=== PATIENT | female | born 1940 | race Caucasian/White ===

== ENCOUNTER 2017-11-13 10:10 | Emergency (ER) | payer MEDICARE ==
[~2017-11-13] VITALS: Ht 167.6 cm; Wt 68.7 kg
[2017-11-13 10:12] VITALS: BP 129/80; PULSE 76; RESP 18; TEMP 97.9; O2SAT 96
[2017-11-13] MEDS ORDERED: ALPR.5 PO (10:24)
[2017-11-13] MEDS ORDERED: FLUO20CA12 PO (10:24)
[2017-11-13] MEDS ORDERED: PROT40TA PO (10:24)
[2017-11-13] MEDS ORDERED: VITA10002 PO (10:24)
[2017-11-13] MEDS ORDERED: CHOL5000 PO (10:24)
--- NOTE | 2017-11-13 11:01 | PD ---
HPI Chief Complaint: Musculoskeletal Complaint Time Seen by Provider: 10:46 Travel History International Travel<30 days: No Contact w/Intl Traveler<30days: No Traveled to known affect area: No History of Present Illness HPI This is a 77-year-old female with right great toe pain after she stubbed the toe 2 days ago. [place] she noticed the area was bruised which prompted her visit. She reports mild to moderate pain in the toe worse with weightbearing and range of motion. Slightly relieved with rest. No other injuries. No altered sensation or weakness of the extremities. PFSH Past Medical History Medical History: Denies Significant Hx ?: Not Social History Tobacco Use: No Allergies-Medications (Allergen,Severity, Reaction): Coded Allergies: No Known Allergies (Unverified , 11/13/17) Reported Meds & Prescriptions Reported Meds & Active Scripts Active Reported Xanax (Alprazolam) 0.5 Mg Tab 0.5 Mg PO Q4H PRN Protonix (Pantoprazole Sodium) 40 Mg Tab 40 Mg PO DAILY Vitamin B-12 (Cyanocobalamin) 1,000 Mcg Tab 1,000 Mcg PO DAILY Fluoxetine (Fluoxetine HCl) 20 Mg Capsule 20 Mg PO DAILY Vitamin D3 (Cholecalciferol) 5,000 Unit Cap 5,000 Units PO DAILY Review of Systems Except as stated in HPI: all other systems reviewed are Neg General / Constitutional: No: Fever Eyes: No: Visual changes HENT: No: Headaches Cardiovascular: No: Chest Pain or Discomfort Respiratory: No: Shortness of Breath Gastrointestinal: No: Abdominal Pain Genitourinary: No: Dysuria Physical Exam Narrative GENERAL: Alert and well-appearing 77-year-old female SKIN: Warm and dry. HEAD: Normocephalic. EYES: No injection or drainage. NECK: Supple GASTROINTESTINAL: nondistended. MUSCULOSKELETAL: No cyanosis. Right foot: Ecchymosis and swelling to great toe. Full range of motion. Normal sensation. Brisk cap refill. Palpable DP pulse Data Data Last Documented VS Vital Signs Date Time Temp Pulse Resp B/P (MAP) Pulse Ox O2 Delivery O2 Flow Rate FiO2 11/13/17 10:12 97.9 76 18 129/80 (96) 96 Orders Orders Foot, Complete ([id number]) (11/13/17 ) Shoe Post Op (11/13/17 ) MDM Medical Decision Making Medical Screen Exam Complete: Yes Emergency Medical Condition: Yes Differential Diagnosis Toe fracture, contusion, sprain Narrative Course 77-year-old female here with toe pain. The digit is neurovascularly intact. X- ray is negative for fracture.Postop shoe provided. Diagnosis Primary Impression: Toe sprain Qualified Codes: S93.509A - Unspecified sprain of unspecified toe(s), initial encounter Referrals: Primary Care Physician Additional Instructions: Rest, ice, elevate the foot. Postop shoe for comfort. Tylenol or ibuprofen for pain. Disposition: 01 DISCHARGE HOME Condition: Stable Shawna Nguyễn November 13, 2017 11:01
--- NOTE | 2017-11-13 11:29 | RADRPT ---
EXAM DATE: 11/13/2017 11:25 AM EDT AGE/SEX: 77 years / Female INDICATIONS: Right great toe pain after falling out of bed CLINICAL DATA: This is the patient's initial encounter. Patient reports that signs and symptoms have been present for 2 days and indicates a pain score of 0/10. MEDICAL/SURGICAL HISTORY: None. None. COMPARISON: No prior [place] exams available for comparison. FINDINGS: AP, lateral and oblique views of the right foot were obtained and demonstrate mild osteopenia and nor mal alignment. Degenerative changes noted involving the first metatarsal-phalangeal joint with joint space loss, sclerosis and hypertrophic change. There is no acute fracture or malalignment. There is a small spur off the inferior calcaneus at the site of attachment of the plantar aponeurosis. CONCLUSION: 1. No acute fracture or malalignment. 2. Moderate osteophytic change involving the first metatarsal-phalangeal joint. 3. Mild osteopenia. Electronically signed by: Tip Spain MD 11/13/2017 11:27 AM EDT
== END 2017-11-13 11:55 | disposition home or self-care (01) ==
LOC: PHEFT 10:10
DX: S93.501A Unspecified sprain of right great toe, initial encounter (principal); Y93.01 Activity, walking, marching and hiking; Y92.832 Beach as the place of occurrence of the external cause; Z79.899 Other long term (current) drug therapy
CPT/HCPCS: 73630; 99283; L3260